=== PATIENT | male | born 1960 | race Two or more races ===

== ENCOUNTER 2018-11-30 14:32 | Emergency (ER) | payer SELFPAY ==
[~2018-11-30] VITALS: Ht 193 cm; Wt 117.9 kg
[2018-11-30 15:00] VITALS: BP 107/80
[2018-11-30] MEDS ORDERED: ACETAMINOPHEN 500 MG TAB PO ONE (15:15)
== END 2018-11-30 15:31 | disposition home or self-care (01) ==
LOC: ER 14:41
DX: L84 Corns and callosities (principal); I10 Essential (primary) hypertension